=== PATIENT | female | born 1965 | race Caucasian/White ===

== ENCOUNTER → 2018-04-23 | Outpatient (CLI) | payer BC ==
--- NOTE | 2018-04-23 12:52 | MM ---
Reason for exam: screening (asymptomatic). Last mammogram was performed 2 years and 5 months ago. History: Patient history of other cancer. Family history of breast cancer in aunt. Benign US biopsy breast VAD RT of the right breast, May 12, 2015. US discontinued breast loc RT of the right breast, May 03, 2015. Benign stereotactic core biopsy of the right breast, June 29, 2004. Benign ultrasound-guided cyst aspiration of the right breast, May 25, 2003. Benign ultrasound-guided cyst aspiration of the right breast, May 25, 2003. 2 cyst aspirations of the right breast. Core biopsy of the right breast. Physical Findings: A clinical breast exam by your physician is recommended on an annual basis and results should be correlated with mammographic findings. MG Screening Mammo w CAD Bilateral CC and MLO view(s) were taken. Prior study comparison: November 15, 2015, right breast MG diagnostic mammo RT w CAD. May 12, 2015, right breast MG diagnostic mammo RT wo CAD. The breast tissue is heterogeneously dense. This may lower the sensitivity of mammography. Previous mammotome biopsy in the right breast x 2. No significant changes when compared with prior studies. ASSESSMENT: Negative, BI-RAD 1 RECOMMENDATION: Routine screening mammogram of both breasts in 1 year.
== END | disposition home or self-care (01) ==
LOC: RADMAMWWP 07:07
PROVIDERS: ATTEND Family Medicine
DX: Z12.31 Encounter for screening mammogram for malignant neoplasm of breast (principal)
CPT/HCPCS: 77067

== ENCOUNTER 2018-08-07 13:30 | Observation (INO) | payer BC ==
[2018-08-07] MEDS ORDERED: ACETAMINOPHEN TAB 500 MG TAB PO STA (13:53)
[2018-08-07] MEDS ORDERED: methylPREDNISolone SOD SUCCI 125 MG/2 ML VIAL IV STA (13:53)
[2018-08-07] MEDS ORDERED: ALBUTEROL NEBULIZED 2.5 MG/3 ML INHALATION STA (13:53)
[2018-08-07] MEDS ORDERED: IPRATROPIUM-ALBUTEROL 3 ML NEB INHALATION STA (13:53)
[2018-08-07] MEDS ORDERED: IBUPROFEN 600 MG TAB PO STA (13:53)
[2018-08-07] MEDS ORDERED: SODIUM CHLORIDE 0.9% 1,000 ML IV ONE (13:54)
--- NOTE | 2018-08-07 14:04 | ED ---
URI HPI - General Chief Complaint: Upper Respiratory Infection Stated Complaint: cough, congestion, body aches Time Seen by Provider: 08/07/18 13:45 Source: patient, RN notes reviewed, old records reviewed Mode of arrival: ambulatory Limitations: no limitations - History of Present Illness Initial Comments: Patient is a 33-year-old female since returned today with cough congestion, body aches. She states that she has been having cough for the past week. Today she turned home from work early playing of severe body aches and fevers chills. Patient states that she's had a productive cough. She is a smoker. She denies any history of sick contacts in and close percent today. She does work at [employer]. - Related Data Home Medications Medication Instructions Recorded Confirmed Levothyroxine Sodium [Synthroid] 50 mcg PO DAILY 05/01/15 08/07/18 Allergies Allergy/AdvReac Type Severity Reaction Status Date / Time codeine AdvReac SHORTNESS Verified 08/07/18 13:47 OF BREATHE Review of Systems ROS Statement: Those systems with pertinent positive or pertinent negative responses have been documented in the HPI. ROS Other: All systems not noted in ROS Statement are negative. Past Medical History Past Medical History: Cancer, Pneumonia, Thyroid Disorder History of Any Multi-Drug Resistant Organisms: None Reported Additional Past Surgical History / Comment(s): neck sx Past Psychological History: No Psychological Hx Reported Smoking Status: Current every day smoker Past Alcohol Use History: Rare Past Drug Use History: None Reported General Exam - General Exam Comments Initial Comments: 53-year-old female. Limitations: no limitations General appearance: alert, in no apparent distress Head exam: Present: atraumatic, normocephalic, normal inspection Eye exam: Present: normal appearance, PERRL, EOMI. Absent: scleral icterus, conjunctival injection, periorbital swelling ENT exam: Present: normal exam, mucous membranes moist Neck exam: Present: normal inspection. Absent: tenderness, meningismus, lymphadenopathy Respiratory exam: Present: wheezes, decreased breath sounds. Absent: normal lung sounds bilaterally, respiratory distress, rales, rhonchi, stridor Cardiovascular Exam: Present: regular rate, normal rhythm, normal heart sounds. Absent: systolic murmur, diastolic murmur, rubs, gallop, clicks GI/Abdominal exam: Present: soft, normal bowel sounds. Absent: distended, tenderness, guarding, rebound, rigid Extremities exam: Present: normal inspection, full ROM, normal capillary refill. Absent: tenderness, pedal edema, joint swelling, calf tenderness Back exam: Present: normal inspection Neurological exam: Present: alert, oriented X3, CN II-XII intact Psychiatric exam: Present: normal affect, normal mood Skin exam: Present: warm, dry, intact, normal color. Absent: rash Course Vital Signs 08/07/18 08/07/18 08/07/18 13:34 14:49 14:59 Temperature 102.5 F H Pulse Rate 137 H 124 H 119 H Respiratory 18 Rate Blood Pressure 134/77 O2 Sat by Pulse 94 L Oximetry 08/07/18 08/07/18 08/07/18 15:01 15:30 15:43 Temperature 102.3 F H 100.8 F H Pulse Rate 102 H 100 Respiratory 20 20 Rate Blood Pressure 112/72 112/72 O2 Sat by Pulse 96 93 L Oximetry Medical Decision Making - Medical Decision Making Patient is a 53-year-old female since the ED today for complaints of cough, fevers chills. Patient has a significantly productive cough. She is generally healthy. Patient was given a breathing treatment, started on IV fluids labwork obtained. Patient's blood work shows evidence of leukocytosis with blood cell count elevated 15,000. Patient's chest x-ray shows a possibility of early left lower lobe pneumonia. This fits patient's clinical symptoms. Patient was started on Rocephin and azithromycin given IV site and Medrol. She is given Motrin Tylenol she did have a very high fever upon arrival 102. I discussed the Patient was offered admission or to be discharged home. Patient states that she still continues to feel unwell in with worsening coughing feels safer to stay. Patient was admitted at this time for observation with breathing treatments. Discussed case with Dr. Yudith Richardson whom discussed the case with Dr. Gifford. - Lab Data Result diagrams: 08/07/18 14:16 08/07/18 14:16 Lab Results 08/07/18 08/07/18 08/07/18 Range/Units 14:16 14:16 14:16 WBC (3.8-10.6) k/uL RBC (3.80-5.40) m/uL Hgb (11.4-16.0) gm/dL Hct (34.0-46.0) % MCV (80.0-100.0) fL MCH (25.0-35.0) pg MCHC (31.0-37.0) g/dL RDW (11.5-15.5) % Plt Count (150-450) k/uL Neutrophils % % Lymphocytes % % Monocytes % % Eosinophils % % Basophils % % Neutrophils # (1.3-7.7) k/uL Lymphocytes # (1.0-4.8) k/uL Monocytes # (0-1.0) k/uL Eosinophils # (0-0.7) k/uL Basophils # (0-0.2) k/uL Sodium 135 L (137-145) mmol/L Potassium 4.4 (3.5-5.1) mmol/L Chloride 103 (98-107) mmol/L Carbon Dioxide 24 (22-30) mmol/L Anion Gap 8 mmol/L BUN 10 (7-17) mg/dL Creatinine 0.79 (0.52-1.04) mg/dL Est GFR (CKD-EPI)AfAm >90 (>60 ml/min/1.73 sqM) Est GFR (CKD-EPI)NonAf 85 (>60 ml/min/1.73 sqM) Glucose 109 H (74-99) mg/dL Plasma Lactic Acid Gabe (0.7-2.0) mmol/L Calcium 9.4 (8.4-10.2) mg/dL Urine Color Yellow Urine Appearance Cloudy H (Clear) Urine pH 6.5 (5.0-8.0) Ur Specific [place] 1.020 (1.001-1.035) Urine Protein Negative (Negative) Urine Glucose (UA) Negative (Negative) Urine Ketones Negative (Negative) Urine Blood Negative (Negative) Urine Nitrite Negative (Negative) Urine Bilirubin Negative (Negative) Urine Urobilinogen <2.0 (<2.0) mg/dL Ur Leukocyte Esterase Moderate H (Negative) Urine RBC 1 (0-5) /hpf Urine WBC <1 (0-5) /hpf Ur Squamous Epith Cells 13 H (0-4) /hpf Urine Bacteria Rare H (None) /hpf Urine Mucus Rare H (None) /hpf Influenza Type A RNA Not Detected (Not Detectd) Influenza Type B (PCR) Not Detected (Not Detectd) Group A Strep Rapid (Negative) 08/07/18 08/07/18 08/07/18 Range/Units 14:16 14:16 14:16 WBC 15.5 H (3.8-10.6) k/uL RBC 4.47 (3.80-5.40) m/uL Hgb 12.9 (11.4-16.0) gm/dL Hct 39.4 (34.0-46.0) % MCV 88.1 (80.0-100.0) fL MCH 28.9 (25.0-35.0) pg MCHC 32.8 (31.0-37.0) g/dL RDW 13.2 (11.5-15.5) % Plt Count 324 (150-450) k/uL Neutrophils % 82 % Lymphocytes % 10 % Monocytes % 5 % Eosinophils % 1 % Basophils % 0 % Neutrophils # 12.7 H (1.3-7.7) k/uL Lymphocytes # 1.6 (1.0-4.8) k/uL Monocytes # 0.8 (0-1.0) k/uL Eosinophils # 0.2 (0-0.7) k/uL Basophils # 0.1 (0-0.2) k/uL Sodium (137-145) mmol/L Potassium (3.5-5.1) mmol/L Chloride (98-107) mmol/L Carbon Dioxide (22-30) mmol/L Anion Gap mmol/L BUN (7-17) mg/dL Creatinine (0.52-1.04) mg/dL Est GFR (CKD-EPI)AfAm (>60 ml/min/1.73 sqM) Est GFR (CKD-EPI)NonAf (>60 ml/min/1.73 sqM) Glucose (74-99) mg/dL Plasma Lactic Acid Gabe 0.9 (0.7-2.0) mmol/L Calcium (8.4-10.2) mg/dL Urine Color Urine Appearance (Clear) Urine pH (5.0-8.0) Ur Specific [place] (1.001-1.035) Urine Protein (Negative) Urine Glucose (UA) (Negative) Urine Ketones (Negative) Urine Blood (Negative) Urine Nitrite (Negative) Urine Bilirubin (Negative) Urine Urobilinogen (<2.0) mg/dL Ur Leukocyte Esterase (Negative) Urine RBC (0-5) /hpf Urine WBC (0-5) /hpf Ur Squamous Epith Cells (0-4) /hpf Urine Bacteria (None) /hpf Urine Mucus (None) /hpf Influenza Type A RNA (Not Detectd) Influenza Type B (PCR) (Not Detectd) Group A Strep Rapid Negative (Negative) - Radiology Data Radiology results: report reviewed Minimal linear opacity in left costophrenic angle likely related to early developing pneumonia Disposition Clinical Impression: Pneumonia, Sepsis Disposition: ADMITTED IP TO THIS HOSP Condition: Stable Is patient prescribed a controlled substance at d/c from ED?: No Referrals: Bruce Arce Jr, [Primary Care Provider] - 1-2 days Time of Disposition: 15:49
[2018-08-07] MEDS: SODIUM CHLORIDE 0.9% 1,000 ML IV SCH (14:15)
[2018-08-07 14:34] LABS: Basophils # (A) 0.1 k/uL (0-0.2); Basophils % (A) 0 %; Eosinophils # (A) 0.2 k/uL (0-0.7); Eosinophils % (A) 1 %; HCT 39.4 % (34.0-46.0); HGB 12.9 gm/dL (11.4-16.0); Lymphocytes # (A) 1.6 k/uL (1.0-4.8); Lymphocytes % (A) 10 %; MCH 28.9 pg (25.0-35.0); MCHC 32.8 g/dL (31.0-37.0); MCV 88.1 fL (80.0-100.0); Mean Platelet Volume 7.2; Monocytes # (A) 0.8 k/uL (0-1.0); Monocytes % (A) 5 %; Neutrophils # (A) 12.7 k/uL (1.3-7.7); Neutrophils % (A) 82 %; Platelet Count 324 k/uL (150-450); RBC 4.47 m/uL (3.80-5.40); RDW 13.2 % (11.5-15.5); WBC 15.5 k/uL (3.8-10.6)
[2018-08-07 14:36] LABS: Appearance,Urine Cloudy (Clear); Bacteria,Urine Rare /hpf; Bilirubin,Urine Negative (Negative); Blood,Urine Negative (Negative); Color,Urine Yellow; Glucose,Urine (UA) Negative (Negative); Ketones,Urine Negative (Negative); Leukocyte Esterase,Urine Moderate (Negative); Mucus,Urine Rare /hpf; Nitrite,Urine Negative (Negative); PH, Urine 6.5 (5.0-8.0); Protein,Urine Negative (Negative); RBC,Urine 1 /hpf (0-5); Squamous Epithelial Cell,Urine 13 /hpf (0-4); Urobilinogen,Urine <2.0 mg/dL (<2.0); WBC,Urine <1 /hpf (0-5)
--- NOTE | 2018-08-07 14:47 | XR ---
EXAMINATION TYPE: XR chest 2V DATE OF EXAM: 08/07/2018 COMPARISON: 05/01/2015 HISTORY: Cough, congestion, and fever TECHNIQUE: Frontal and lateral views of the chest are obtained. FINDINGS: Minimal linear opacity is seen at the left costophrenic angle. Remainder the lungs are jony ar. Mild multilevel degenerative changes of the spine are seen. Cardia mediastinal silhouette is with in normal limits. Cervical fusion device is noted. IMPRESSION: Minimal linear opacity at the left costophrenic angle likely related although early deve loping pneumonia is possible.
[2018-08-07] MEDS ORDERED: AZITHROMYCIN 500 MG TAB PO STA (14:50)
[2018-08-07] MEDS ORDERED: cefTRIAXone IN SWFI 1,000 MG/10 ML SYRINGE IVP STA (14:50)
[2018-08-07 14:59] LABS: African American GFR (CKD) >90 (>60 ml/min/1.73 sqM); Anion Gap 8 mmol/L; Blood Urea Nitrogen 10 mg/dL (7-17); Calcium 9.4 mg/dL (8.4-10.2); Carbon Dioxide 24 mmol/L (22-30); Chloride 103 mmol/L (98-107); Glucose 109 mg/dL (74-99); Potassium 4.4 mmol/L (3.5-5.1); Sodium 135 mmol/L (137-145)
[2018-08-07] MEDS ORDERED: PNEUMONIA PROTOCOL UTILIZED 1 EACH MISC PO PRN (15:50)
[2018-08-07] MEDS ORDERED: IPRATROPIUM-ALBUTEROL 3 ML NEB INHALATION PRN (15:50)
[2018-08-07] MEDS ORDERED: ALBUTEROL NEBULIZED 2.5 MG/3 ML INHALATION PRN (15:50)
[2018-08-07] MEDS ORDERED: NALOXONE 0.4 MG/ML 1 ML VIAL IV PRN (15:51)
[2018-08-07] MEDS ORDERED: ACETAMINOPHEN TAB 325 MG TAB PO PRN (15:51)
[2018-08-07] MEDS ORDERED: ONDANSETRON 4 MG/2 ML VIAL IVP PRN (15:51)
[2018-08-07] MEDS ORDERED: KETOROLAC 30 MG/ML 1 ML VIAL IVP PRN (15:51)
[2018-08-07] MEDS ORDERED: IBUPROFEN 400 MG TAB PO PRN (15:51)
[2018-08-07 19:49] VITALS: RESP 16
[2018-08-08] MEDS: SODIUM CHLORIDE 0.9% 1,000 ML IV SCH ×4 (02:24→11:15)
[2018-08-08] MEDS ORDERED: LEVOTHYROXINE 50 MCG TAB PO SCH (06:30)
--- NOTE | 2018-08-08 07:33 | XR ---
EXAMINATION TYPE: XR chest 2V DATE OF EXAM: 08/08/2018 COMPARISON: 08/07/2018 HISTORY: Follow-up for pneumonia. TECHNIQUE: Frontal and lateral views of the chest are obtained. FINDINGS: There is clearing of the previously seen consolidation at the left costophrenic angle. How ever a somewhat spiculated density remains on the lateral view posteriorly. Remainder the lungs are c lear. Minimal degenerative changes of the spine are seen with partial visualization of a cervical fus ion device. Cardiomediastinal silhouette is within normal limits. No pneumothorax. IMPRESSION: Resolved left basilar airspace disease on the frontal view however a spiculated density persists on the lateral view only. Continued follow-up to resolution with 2 view chest x-ray is recom mended to exclude underlying pulmonary nodule.
[2018-08-08 08:30] VITALS: BP 125/83; PULSE 106; TEMP 97.8
[2018-08-08] MEDS ORDERED: RX INFO: IV CONTRAST WAS GIVEN 1 EACH MISC MISCELLANE PRN (08:59)
[2018-08-08] MEDS ORDERED: PANTOPRAZOLE 40 MG/10 ML VIAL IV SCH (09:00)
[2018-08-08] MEDS ORDERED: methylPREDNISolone SOD SUCCI 125 MG/2 ML VIAL IV SCH (12:00)
[2018-08-08] MEDS ORDERED: SYMBICORT 160-4.5 MCG INHALER INHALATION SCH (12:00)
[2018-08-08] MEDS ORDERED: NICOTINE 21MG/24HR PATCH TRANSDERM SCH (12:00)
[2018-08-08] MEDS ORDERED: IPRATROPIUM-ALBUTEROL 3 ML NEB INHALATION SCH (12:00)
[2018-08-08] MEDS ORDERED: INSULIN ASPART (NovoLOG) 100 UNIT/ML VIAL SQ SCH (12:30)
--- NOTE | 2018-08-08 12:49 | CT ---
EXAMINATION TYPE: CT chest w con DATE OF EXAM: 08/08/2018 COMPARISON: None HISTORY: Abnormal CXR. Productive cough. CT DLP: 354.5 mGycm, Automated exposure control for dose reduction was used. CONTRAST: Performed injected with 100 mL of Isovue 300. TECHNIQUE: Axial images were obtained at 5 mm thick sections. Reconstructed images are reviewed on [employer] computer in the coronal plane. FINDINGS: Portion of the thyroid visualized is normal. There is a 0.6 cm nodule within the lingula. Series 204 image 36. Some streak opacity in the posterior left lung base may correspond to the location on chest x-ray. Ho wever, the findings do not appear to be correlating. Chest x-ray finding appears larger than the CT f inding. Continued monitoring with chest x-ray is recommended. No enlarged mediastinal or hilar adenopathy is evident. The ascending aorta diameter at the level o f the main pulmonary artery is 3.3 cm. The main pulmonary artery diameter at the bifurcation is 3.3 cm. Minimal coronary artery calcifications present. Limited CT sections are obtained through the upper abdomen. Scattered hypodensities within the liver compatible with hepatic cysts. IMPRESSIONS: 1. Some streak atelectasis in the posterior left base may correspond to the region on the chest x-ray . Finding on CT may have had partial resolution and could be atelectasis. 2. There is a small nodule within the lingula. Follow-up is recommended.
--- NOTE | 2018-08-08 14:16 | P.HPIM ---
History of Present Illness H&P Date: 08/08/18 Chief Complaint: Cough, body aches, fever This is a 53-year-old female with history of cervical cancer, hypothyroidism, ongoing nicotine dependence to presented the ER with complaints of of productive cough 1 week accompanied by body aches, fevers and chills. On arrival, Temperature 102.5, tachycardic, heart rate 137, systolic BPs 96-107, O2 sat on room air 94% WBC 15, chest x-ray reporting minimal linear opacity at the left costophrenic angle, possibly early pneumonia. Repeat x-ray reported resolved bibasilar airspace disease, spiculated densities persist on the lateral view only. Chest CT reporting some streaky atelectasis in the posterior left base, may have partial resolution, possible atelectasis, small nodule in the lingula, 0.6 cm. Negative for influenza A/B. Negative for strep. Blood and sputum sputum cultures obtained .Received IV fluid hydration, Zithromax, Rocephin, IV steroids, Motrin and Tylenol. Review of Systems ROS Statement: Those systems with pertinent positive or pertinent negative responses have been documented in the HPI. ROS Other: All systems not noted in ROS Statement are negative. Past Medical History Past Medical History: Cancer, Pneumonia, Thyroid Disorder Additional Past Medical History / Comment(s): CERVICAL CANCER AT 23YRS OLD. PNEUMONIA. History of Any Multi-Drug Resistant Organisms: None Reported Past Surgical History: Orthopedic Surgery Additional Past Surgical History / Comment(s): CERVICAL SPINAL SURGERY Past Anesthesia/Blood Transfusion Reactions: No Reported Reaction Past Psychological History: No Psychological Hx Reported Smoking Status: Current every day smoker Past Alcohol Use History: Rare Past Drug Use History: None Reported - Past Family History Mother Family Medical History: Diabetes Mellitus Father Family Medical History: Diabetes Mellitus, Hypertension Brother(s) Family Medical History: Diabetes Mellitus Sister(s) Family Medical History: Cancer, Diabetes Mellitus Medications and Allergies Home Medications Medication Instructions Recorded Confirmed Type Levothyroxine Sodium [Synthroid] 50 mcg PO DAILY 05/01/15 08/07/18 History Acetaminophen Tab [Tylenol] 650 mg PO Q6HR PRN tab 08/08/18 Rx Albuterol Sulfate [Proair Hfa] 2 puff INHALATION Q6HR PRN #1 08/08/18 Rx inhaler Azithromycin [Zithromax] 500 mg PO Q24H #5 tab 08/08/18 Rx Cefuroxime Axetil [Ceftin] 500 mg PO BID 3 Days #6 tab 08/08/18 Rx Fluticasone/Umeclidin/Vilanter 1 inhalation INHALATION DAILY #1 08/08/18 Rx [Trelegy Ellipta 100-62.5-25] device Nicotine 21Mg/24Hr Patch [Habitrol] 1 patch TRANSDERM DAILY #30 patch 08/08/18 Rx Omeprazole [PriLOSEC] 20 mg PO AC-BID #28 cap 08/08/18 Rx predniSONE 10 mg PO DIRECTED #30 tab 08/08/18 Rx Allergies Allergy/AdvReac Type Severity Reaction Status Date / Time codeine AdvReac SHORTNESS Verified 08/07/18 13:47 OF BREATHE Physical Exam Vitals: Vital Signs Temp Pulse Pulse Resp BP BP Pulse Ox 08/08/18 08:27 110 H 08/08/18 08:13 111 H 98 08/08/18 07:35 97.8 F 106 H 16 125/83 96 08/08/18 01:07 97.9 F 77 16 96/64 95 08/07/18 19:48 98.1 F 98 16 107/74 96 08/07/18 17:00 87 20 115/74 94 L 08/07/18 16:30 115/73 95 08/07/18 16:00 116/72 93 L 08/07/18 15:43 100.8 F H 08/07/18 15:30 100 20 112/72 93 L 08/07/18 15:01 102.3 F H 102 H 20 112/72 96 08/07/18 14:59 119 H 08/07/18 14:49 124 H 08/07/18 13:34 102.5 F H 137 H 18 134/77 94 L Intake and Output 08/07/18 08/08/18 08/08/18 22:59 06:59 14:59 Intake Total 200 1480 240 Balance 200 1480 240 Intake: Intake, IV Titration 200 1000 Amount Sodium Chloride 0.9% 1, 200 1000 000 ml @ 100 mls/hr IV . Q10H [facility] Rx#:[id number] Oral 480 240 PHYSICAL EXAM: VITAL SIGNS: As above GENERAL: Sitting up in bed, no acute distress HEENT: Conjunctivae normal. eyes normal. NECK: No JVD. No thyroid enlargement. No LNs CARDIOVASCULAR: S1, S2 regular.. No murmur RESPIRATION: Breath sounds diminished in the bases. No rhonchi or crackles. Fine rate basilar Expiratory wheezing.No bronchial breathing. ABDOMEN: Soft, nontender . No guarding. no masses palpable. Bowel sounds heard. LEGS: No edema. no swelling PSYCHIATRY: Alert and oriented ?-3, mood and affect normal. NERVOUS SYSTEM: Cranial N 2-12 grossly normal. Moves all 4 limbs. Diffuse weakness No focal deficits. Strength and sensation grossly intact.. Skin: no lesions, no rash Joints: No active swelling. No inflammation. Lymphatic system. No LN neck axilla or groin. Results CBC & Chem 7: 08/07/18 14:16 08/07/18 14:16 Labs: Abnormal Lab Results - Last 24 Hours (Table) 08/07/18 08/07/18 08/07/18 Range/Units 14:16 14:16 14:16 WBC 15.5 H (3.8-10.6) k/uL Neutrophils # 12.7 H (1.3-7.7) k/uL Sodium 135 L (137-145) mmol/L Glucose 109 H (74-99) mg/dL Urine Appearance Cloudy H (Clear) Ur Leukocyte Esterase Moderate H (Negative) Ur Squamous Epith Cells 13 H (0-4) /hpf Urine Bacteria Rare H (None) /hpf Urine Mucus Rare H (None) /hpf Microbiology - Last 24 Hours (Table) 08/07/18 14:16 Group A Strep Throat Culture - Preliminary Throat Thrombosis Risk Factor Assmnt - Choose All That Apply Any of the Below Risk Factors Present?: Yes Each Factor Represents 1 point: Age 41-60 years, Serious lung disease incl. pneumonia (< 1month) Thrombosis Risk Factor Assessment Total Risk Factor Score: 2 Thrombosis Risk Factor Assessment Level: Low Risk Assessment and Plan Assessment: -Acute early pneumonia possibly.Streaky atelectasis in the posterior left base, may have partial resolution, possible atelectasis, small nodule in the lingula, 0.[address] -Nicotine dependence -Hypothyroidism -History of cervical cancer Plan: Continue on current medication regime ,monitoring and symptomatic treatment. Significant clinical improvement on IV fluids, IV antibiotics, IV steroids. Home meds have been reviewed and resumed. Patient ambulating in hallway 3, eager for discharge. Patient is being discharged home in a stable condition with guarded prognosis. Patient to follow-up with pulmonary outpatient regarding chest CT. Time taken: 35 minutes
--- NOTE | 2018-08-08 14:22 | P.DS ---
Providers Date of admission: 08/07/18 16:57 Expected date of discharge: 08/08/18 Attending physician: Bruce Benson Primary care physician: Bruce Arce [facility] Course: Final Diagnoses: -Acute early pneumonia possibly.Streaky atelectasis in the posterior left base, may have partial resolution, possible atelectasis, small nodule in the lingula, 0.[address] -Nicotine dependence -Hypothyroidism -History of cervical cancer Hospital course:This is a 53-year-old female with history of cervical cancer, hypothyroidism, ongoing nicotine dependence to presented the ER with complaints of of productive cough 1 week accompanied by body aches, fevers and chills. On arrival, Temperature 102.5, tachycardic, heart rate 137, systolic BPs 96-107, O2 sat on room air 94% WBC 15, chest x-ray reporting minimal linear opacity at the left costophrenic angle, possibly early pneumonia. Repeat x-ray reported resolved bibasilar airspace disease, spiculated densities persist on the lateral view only. Chest CT reporting some streaky atelectasis in the posterior left base, may have partial resolution, possible atelectasis, small nodule in the lingula, 0.6 cm. Negative for influenza A/B. Negative for strep. Blood and spu carlton sputum cultures obtained .Received IV fluid hydration, Zithromax, Rocephin, IV steroids, Motrin and Tylenol. Significant clinical improvement on IV fluids, IV antibiotics, IV steroids. Patient ambulating in hallway 3, eager for discharge. No nausea vomiting or diarrhea. Denies abdominal pain. Denies lightheadedness dizziness or focal deficits. Denies chest pain, palpitations. Patient is being discharged home in a stable condition with guarded prognosis. Patient to follow-up with pulmonary outpatient regarding chest CT. EXAM: GENERAL: Alert and oriented 3, no acute distress CARDIOVASCULAR: S1, S2 regular.. No murmur RESPIRATION: Breath nonlabored, sounds diminished in the bases.Fine rate basilar Expiratory wheezing. ABDOMEN: Soft, nontender . No guarding. no masses palpable. Bowel sounds heard. LEGS: No edema. no swelling NERVOUS SYSTEM: No focal deficits. The impression and plan of care has been dictated as directed. : I performed a history and examination of this patient, discussed the same with the dictator. I agree with the dictator's note ,documented as a scribe. Any additional findings or plans will be noted. Time taken: 35 minutes Patient Condition at Discharge: Stable Plan - Discharge Summary Discharge Rx Participant: No New Discharge Prescriptions: New Cefuroxime Axetil [Ceftin] 500 mg PO BID 3 Days #6 tab Acetaminophen Tab [Tylenol] 650 mg PO Q6HR PRN tab PRN Reason: Mild Pain Or Fever > 100.5 Azithromycin [Zithromax] 500 mg PO Q24H #5 tab Fluticasone/Umeclidin/Vilanter [Trelegy Ellipta 100-62.5-25] 1 inhalation INHALATION DAILY #1 device Albuterol Sulfate [Proair Hfa] 2 puff INHALATION Q6HR PRN #1 inhaler PRN Reason: Shortness Of Breath predniSONE 10 mg PO DIRECTED #30 tab Omeprazole [PriLOSEC] 20 mg PO AC-BID #28 cap Nicotine 21Mg/24Hr Patch [Habitrol] 1 patch TRANSDERM DAILY #30 patch Continue Levothyroxine Sodium [Synthroid] 50 mcg PO DAILY Discharge Medication List Levothyroxine Sodium [Synthroid] 50 mcg PO DAILY 05/01/15 [History] Acetaminophen Tab [Tylenol] 650 mg PO Q6HR PRN tab 08/08/18 [Rx] Albuterol Sulfate [Proair Hfa] 2 puff INHALATION Q6HR PRN #1 inhaler 08/08/18 [Rx] Azithromycin [Zithromax] 500 mg PO Q24H #5 tab 08/08/18 [Rx] Cefuroxime Axetil [Ceftin] 500 mg PO BID 3 Days #6 tab 08/08/18 [Rx] Fluticasone/Umeclidin/Vilanter [Trelegy Ellipta 100-62.5-25] 1 inhalation INHALATION DAILY #1 device 08/08/18 [Rx] Nicotine 21Mg/24Hr Patch [Habitrol] 1 patch TRANSDERM DAILY #30 patch 08/08/18 [Rx] Omeprazole [PriLOSEC] 20 mg PO AC-BID #28 cap 08/08/18 [Rx] predniSONE 10 mg PO DIRECTED #30 tab 08/08/18 [Rx] Follow up Appointment(s)/Referral(s): Bruce Arce Jr, [Primary Care Provider] - 08/12/18 11:00 am (With Merry schwarz) Heather Martínez MD [STAFF PHYSICIAN] - 08/14/18 3:30 pm (CT reporting lingula nodule 0.6cm, possible streaky atelectasis left base WithNP) Ambulatory/Diagnostic Orders: Complete Blood Count w/diff [LAB.AMB] Time Frame: 3 Days, Location: None Selected Patient Instructions/Handouts: Pneumonia (DC) Activity/Diet/Wound Care/Special Instructions: Pending CT results Fax final blood and sputum culture results to Dr. Arce No smoking
[2018-08-08] MEDS ORDERED: AZITHROMYCIN 500 MG TAB PO SCH (16:00)
[2018-08-09] MEDS ORDERED: PANTOPRAZOLE 40 MG TABLET PO SCH (09:00)
== END 2018-08-08 14:10 | disposition home or self-care (01) ==
LOC: EC 13:30 → 4SSUR 16:57
PROVIDERS: ADMIT Family Medicine; ATTEND Family Medicine
DX: R05 Cough (principal); R50.9 Fever, unspecified; R91.1 Solitary pulmonary nodule; E03.9 Hypothyroidism, unspecified; F17.200 Nicotine dependence, unspecified, uncomplicated; Z79.890 Hormone replacement therapy; Z85.41 Personal history of malignant neoplasm of cervix uteri; Z87.01 Personal history of pneumonia (recurrent); Z88.5 Allergy status to narcotic agent; Z71.6 Tobacco abuse counseling; Z79.2 Long term (current) use of antibiotics; Z79.51 Long term (current) use of inhaled steroids; Z79.52 Long term (current) use of systemic steroids; Z79.899 Other long term (current) drug therapy; Z82.49 Family history of ischemic heart disease and other diseases of the circulatory system; Z83.3 Family history of diabetes mellitus
CPT/HCPCS: 96375 ×2; 96361; 96374; 99285; 36415; 94640 ×2; 94760; 80048; 83605; 85025; 81001; 87040; 87081; 87430; 87502; 71046 ×2; 71260; G0378 ×2; J2930; J0696; C9113; Q9967

== ENCOUNTER 2019-11-20 23:31 | Emergency (ER) | payer BC ==
[2019-11-20] MEDS ORDERED: IBUPROFEN 600 MG TAB PO STA (23:50)
[2019-11-20] MEDS ORDERED: ACETAMINOPHEN TAB 500 MG TAB PO STA (23:50)
--- NOTE | 2019-11-21 00:27 | XR ---
EXAMINATION TYPE: XR chest 1V DATE OF EXAM: 11/21/2019 COMPARISON: 08/14/2018 HISTORY: Pneumonia. Chest pain TECHNIQUE: Single view FINDINGS: Heart and mediastinum are normal. Lungs are clear. Diaphragm is normal. Bony thorax is norm al. IMPRESSION: Normal chest. No adverse change compared to old exam. There is clearing of the subsegment al atelectasis left lung base compared to old exam.
[2019-11-21] MEDS ORDERED: AMOXICILLIN 500MG STARTER PACK 3 CAP BTL PO STA (00:54)
[2019-11-21] MEDS ORDERED: DEXAMETHASONE SOD PHOSPHATE 10 MG/ML 1 ML VIAL IM STA (00:55)
--- NOTE | 2019-11-21 00:55 | ED ---
ENT HPI - General Chief complaint: ENT Stated complaint: sore throat, body aches Time Seen by Provider: 11/20/19 23:40 Source: patient Mode of arrival: ambulatory Limitations: no limitations - History of Present Illness Initial comments: 54 year-old female patient presents to the emergency department today for evaluation of sore throat and generalized body aches. Patient states starting this morning she developed a sore throat, equal on both sides. She states that she is also had a cough with clear sputum production since this afternoon. She denies any shortness of breath with this. She denies a rash, nausea, vomiting, or abdominal pain. Denies any known fever. Denies taking any medication for her symptoms. She denies any sick contacts or recent travel. Patient denies any recent chest pain, abdominal pain, back pain, numbness, tingling, dizziness, weakness, hematuria, dysuria, urinary urgency, urinary frequency, headache, visual changes, or any other complaints. - Related Data Home Medications Medication Instructions Recorded Confirmed Levothyroxine Sodium [Synthroid] 50 mcg PO DAILY 05/01/15 08/07/18 Previous Rx's Medication Instructions Recorded Acetaminophen Tab [Tylenol] 650 mg PO Q6HR PRN tab 08/08/18 Albuterol Sulfate [Proair Hfa] 2 puff INHALATION Q6HR PRN #1 08/08/18 inhaler Azithromycin [Zithromax] 500 mg PO Q24H #5 tab 08/08/18 Cefuroxime Axetil [Ceftin] 500 mg PO BID 3 Days #6 tab 08/08/18 Fluticasone/Umeclidin/Vilanter 1 inhalation INHALATION DAILY #1 08/08/18 [Trelenelly Ellipta 100-62.5-25] device Nicotine 21Mg/24Hr Patch [Habitrol] 1 patch TRANSDERM DAILY #30 patch 08/08/18 Omeprazole [PriLOSEC] 20 mg PO AC-BID #28 cap 08/08/18 predniSONE 10 mg PO DIRECTED #30 tab 08/08/18 Amoxicillin 500 mg PO Q12HR #20 cap 11/21/19 Allergies Allergy/AdvReac Type Severity Reaction Status Date / Time codeine AdvReac SHORTNESS Verified 11/20/19 23:39 OF BREATHE Review of Systems ROS Statement: Those systems with pertinent positive or pertinent negative responses have been documented in the HPI. ROS Other: All systems not noted in ROS Statement are negative. Past Medical History Past Medical History: Cancer, Pneumonia, Thyroid Disorder Additional Past Medical History / Comment(s): CERVICAL CANCER AT 23YRS OLD. PNEUMONIA. History of Any Multi-Drug Resistant Organisms: None Reported Past Surgical History: Orthopedic Surgery Additional Past Surgical History / Comment(s): CERVICAL SPINAL SURGERY Past Anesthesia/Blood Transfusion Reactions: No Reported Reaction Past Psychological History: No Psychological Hx Reported Smoking Status: Current every day smoker Past Alcohol Use History: Rare Past Drug Use History: None Reported - Past Family History Mother Family Medical History: Diabetes Mellitus Father Family Medical History: Diabetes Mellitus, Hypertension Brother(s) Family Medical History: Diabetes Mellitus Sister(s) Family Medical History: Cancer, Diabetes Mellitus General Exam Limitations: no limitations General appearance: alert, in no apparent distress, other (This is a well developed, well nourished, adult female patient in no acute distress. ) Eye exam: Present: normal appearance, PERRL, EOMI. Absent: scleral icterus, conjunctival injection, periorbital swelling ENT exam: Present: mucous membranes moist, TM's normal bilaterally. Absent: normal oropharynx (Pharyngeal erythema. There is some tonsillar hypertrophy. No tonsillar exudate. Tonsils are symmetric, uvula is midline.) Neck exam: Present: normal inspection, lymphadenopathy (There is lymphadenopathy to the anterior cervical region). Absent: tenderness, meningismus Respiratory exam: Present: normal lung sounds bilaterally. Absent: respiratory distress, wheezes, rales, rhonchi, stridor Cardiovascular Exam: Present: regular rate, normal rhythm, normal heart sounds. Absent: systolic murmur, diastolic murmur, rubs, gallop, clicks Neurological exam: Present: alert, oriented X3, CN II-XII intact Psychiatric exam: Present: normal affect, normal mood Skin exam: Present: warm, dry, intact, normal color. Absent: rash Course Vital Signs 11/20/19 11/21/19 23:33 01:20 Temperature 98.9 F 98.7 F Pulse Rate 102 H 78 Respiratory 18 20 Rate Blood Pressure 105/65 107/63 O2 Sat by Pulse 95 97 Oximetry Medical Decision Making - Medical Decision Making 54-year-old female patient presents to the emergency department today for evaluation of sore throat, generalized body aches. Physical examination did reveal pharyngeal erythema and tonsillar hypertrophy. There is no exudate. Uvula is midline, tonsils are symmetric. She did have anterior cervical lymphadenopathy. Influenza test was negative. COVID-19 test is pending. Strep screen was positive. Patient was started on amoxicillin. She is instructed take Tylenol Motrin for pain and fever control. She is instructed to follow-up with her primary care physician for recheck in 1-2 days. Return parameters discussed in detail. She verbalizes understanding and agrees with this plan. - Lab Data Lab Results 11/21/19 Range/Units 00:20 Influenza Type A RNA Not Detected (Not Detectd) Influenza Type B (PCR) Not Detected (Not Detectd) Group A Strep Rapid Positive A (Negative) - Radiology Data Radiology results: report reviewed, image reviewed One view x-ray of the chest is obtained. Report is reviewed in its entirety. Impression by Dr. Goodman shows normal chest. No adverse change compared to old exam. There is clearing of the subsegmental atelectasis left lung base compared to old exam. Disposition Clinical Impression: Strep pharyngitis Disposition: HOME SELF-CARE Condition: Good Instructions (If sedation given, give patient instructions): Strep Throat (ED) Additional Instructions: Complete antibiotic prescription in full. Take Tylenol and Motrin for pain and fever control. Follow-up with your primary care physician for recheck in 1-2 days. Return to the emergency department immediately for any new, worsening, or concerning symptoms. Prescriptions: Amoxicillin 500 mg PO Q12HR #20 cap Is patient prescribed a controlled substance at d/c from ED?: No Referrals: Bruce Arce Jr, [Primary Care Provider] - 1-2 days Time of Disposition: 00:55
[2019-11-21 01:58] VITALS: BP 107/63; PULSE 78; RESP 20; TEMP 98.7
== END 2019-11-21 01:20 | disposition home or self-care (01) ==
LOC: EC 23:31
DX: J02.0 Streptococcal pharyngitis (principal); E07.9 Disorder of thyroid, unspecified; Z79.890 Hormone replacement therapy; F17.200 Nicotine dependence, unspecified, uncomplicated; Z85.41 Personal history of malignant neoplasm of cervix uteri; Z88.5 Allergy status to narcotic agent; Z80.9 Family history of malignant neoplasm, unspecified; Z20.828 Contact with and (suspected) exposure to other viral communicable diseases
CPT/HCPCS: 87430; 87502; 71045; 99283; U0003; J1100

== ENCOUNTER → 2020-01-16 | Outpatient (CLI) | payer BC ==
--- NOTE | 2020-01-16 11:38 | US ---
EXAMINATION TYPE: US kidneys/renal and bladder DATE OF EXAM: 01/16/2020 COMPARISON: NONE CLINICAL HISTORY: 55-year-old female R10.9 FLANK PAIN,N28.89 DISORDER OF KIDNEY URETER. TECHNIQUE: Multiple sonographic images of the kidneys and bladder are obtained. FINDINGS: EXAM MEASUREMENTS: Right Kidney: 11.1 x 4.5 x 5.0 cm Left Kidney: 10.3 x 5.9 x 5.6 cm Steward/Stewardess Night notes: Patient of large body habitus. Right Kidney: Mild pelvicaliectasis. Echogenic foci measuring 3 mm and 4 mm. Left Kidney: multiple cysts, largest measuring 2.4 x 2.4 x 1.5cm, inferior pole obscured by overlyin g bowel gas. No hydronephrosis. Bladder: wnl Left jet seen, right not visualized Two liver cysts measuring up to 2.3 cm. IMPRESSION: 1. Mild right-sided pelvicaliectasis. Given patient's flank pain and absent right ureteral jet, corre late to exclude mild/early obstructive uropathy. 2. A couple punctate 3 and 4 mm nonobstructive right renal calculi.
== END | disposition home or self-care (01) ==
LOC: RADUSWWP 09:21
PROVIDERS: ATTEND Family Medicine
DX: N28.89 Other specified disorders of kidney and ureter (principal); N20.0 Calculus of kidney; Z88.5 Allergy status to narcotic agent; Z91.030 Bee allergy status
CPT/HCPCS: 76770

== ENCOUNTER → 2020-02-03 | Outpatient (CLI) | payer BC ==
--- NOTE | 2020-02-04 07:46 | MM ---
Reason for exam: additional evaluation requested from prior study. Last mammogram was performed 1 year and 9 months ago. History: Patient has history of other cancer at age 23. Family history of breast cancer in aunt. Benign US biopsy breast VAD RT of the right breast, May 12, 2015. US discontinued breast loc RT of the right breast, May 03, 2015. Benign stereotactic core biopsy of the right breast, June 29, 2004. Benign ultrasound-guided cyst aspiration of the right breast, May 25, 2003. Benign ultrasound-guided cyst aspiration of the right breast, May 25, 2003. 2 cyst aspirations of the right breast. Core biopsy of the right breast. Physical Findings: Nurse did not find any significant physical abnormalities on exam. MG Diagnostic Mammo w CAD [facility] Bilateral CC and MLO view(s) were taken. Prior study comparison: April 23, 2018, bilateral MG screening mammo w CAD. November 15, 2015, right breast MG diagnostic mammo RT w CAD. The breast tissue is heterogeneously dense. This may lower the sensitivity of mammography. Benign appearing bilateral calcifications. Previous mammotome biopsy in the right breast. These results were verbally communicated with the patient and result sheet given to the patient on 02/03/20. ASSESSMENT: Incomplete: need additional imaging evaluation, BI-RAD 0 RECOMMENDATION: Ultrasound of the right breast. (palpable abnormality)
--- NOTE | 2020-02-04 07:48 | USB ---
Reason for exam: additional evaluation requested from abnormal screening. History: Patient has history of other cancer at age 23. Family history of breast cancer in aunt. Benign US biopsy breast VAD RT of the right breast, May 12, 2015. US discontinued breast loc RT of the right breast, May 03, 2015. Benign stereotactic core biopsy of the right breast, June 29, 2004. Benign ultrasound-guided cyst aspiration of the right breast, May 25, 2003. Benign ultrasound-guided cyst aspiration of the right breast, May 25, 2003. 2 cyst aspirations of the right breast. Core biopsy of the right breast. US Breast Limited RT Right limited breast ultrasound including focal area of concern, retroareolar and axilla demonstrates a 0.5 x 0.2 x 0.4cm cystic cluster at 9 o'clock and a 0.6 x 0.3 x 0.4cm lesion at 11 o'clock. These results were verbally communicated with the patient and result sheet given to the patient on 02/03/20. ASSESSMENT: Probably benign, BI-RAD 3 RECOMMENDATION: Follow-up diagnostic mammogram of the right breast in 6 months. Manage patient on a clinical basis.
== END | disposition home or self-care (01) ==
LOC: RADMAMWWP 13:52
PROVIDERS: ATTEND Family Medicine
DX: N63.11 Unspecified lump in the right breast, upper outer quadrant (principal); N64.4 Mastodynia; R92.8 Other abnormal and inconclusive findings on diagnostic imaging of breast
CPT/HCPCS: 77066

== ENCOUNTER → 2023-10-12 | Outpatient (CLI) | payer BC | END | disposition home or self-care (01) | LOC: RADECHMAIN 13:15 | PROVIDERS: ATTEND Family Medicine | DX: R07.9 Chest pain, unspecified (principal); R60.0 Localized edema | CPT/HCPCS: 93306 ==

== ENCOUNTER → 2023-10-26 | Outpatient (CLI) | payer BC ==
--- NOTE | 2023-10-30 08:27 | CA ---
Exercise Nuclear Stress Test Report Name: Catrina Casey Exam Date: 10/26/2023 10:12 Exam Location: [place] Stress Ht (in): 62 Wt (lb): 237 BSA: 2.05 Ordering Phys: Referring Phys: MICAELA WALTON Technologist: Jonnie Cisneros Age: 58 Gender: F : 1965 Procedure CPT: Indications: ICD-10 Codes: Patient History: Chest pain, shortness of breath and family history of heart disease. Medications: Meds past 24 hrs: Pretest Chest Pain: STRESS TEST Aj Protocol Exercise Duration (min:sec): 04:[address] Depressions (mm): 0 Angina Score: 0 Kim Score: 4.25 Resting HR (bpm): 63 Peak HR (bpm): 141 Resting BP (mmHg): 117 / 69 Peak BP (mmHg): 148 / 92 MPHR: 160 Target HR: 136 % MPHR: 88 METS: 6.8 Total Dose: Peak Dose: Atropine: Double Product: 65334 BP Response: Stress Termination: Reached target heart rate., Dyspnea Stress Symptoms: Dyspnea Stress Summary: The patient's target heart rate was achieved ECG ANALYSIS Resting ECG: Sinus rhythm. Normal conduction. No arrhythmias. Normal repolarization. Stress ECG: No ECG evidence of ischemia with exercise. CONCLUSIONS Exercise capacity fair to good at 6-10 METS. No chest discomfort with stress test. Normal ST segment response to stress. Nuclear test results to follow. Dr. Dilip Nagel MD (Electronically Signed) Final Date: 26 October 2023 12:11
--- NOTE | 2023-10-30 11:23 | NM ---
EXAMINATION TYPE: NM stress cardiolite complete DATE OF EXAM: 10/26/2023 COMPARISON: NONE CLINICAL INDICATION: Chest pain and shortness of breath TECHNIQUE: 9.94mCi Tc99m Sestamibi at 0855 rest 25.7mCi Tc99m Sestamibi at 1030 stress FINDINGS: Targeted heart rate was achieved during performance of the study. Review of stress and rest SPECT roland ges demonstrates no distinct perfusion abnormality. Small fixed defect cardiac apex. Gated analysis shows normal wall motion with an estimated left ventricular ejection fraction of 75 %. IMPRESSION: No scintigraphic evidence for reversible ischemia
== END | disposition home or self-care (01) ==
LOC: RADNMMAIN 08:16
PROVIDERS: ATTEND Family Medicine
DX: R07.9 Chest pain, unspecified (principal); R60.0 Localized edema; Z82.49 Family history of ischemic heart disease and other diseases of the circulatory system
CPT/HCPCS: 93017; 78452; A9500

== ENCOUNTER → 2024-07-10 | Outpatient (CLI) | payer BC ==
--- NOTE | 2024-07-10 11:01 | US ---
EXAMINATION TYPE: US venous doppler duplex LE RT DATE OF EXAM: 07/10/2024 10:47 AM COMPARISON: NONE CLINICAL INDICATION: Female, 59 years old with history of M79.89 LEG SWELLING, M79.604 PAIN RT LEG; R ight leg and foot pain. Not on blood thinners, no redness or swelling, Pain TECHNIQUE: The lower extremity deep venous system is examined utilizing real time linear array sonog karlos with graded compression, color doppler sonography, and spectral doppler. SIDE PERFORMED: Right FINDINGS: VESSELS IMAGED: Common Femoral Vein Deep Femoral Vein Greater Saphenous Vein * Femoral Vein Popliteal Vein Small Saphenous Vein * Proximal Calf Veins (* superficial vessels) Right Leg: Negative for DVT, Color Doppler imaging shows patency of the vessels. Spectral waveforms are within normal limits. IMPRESSION: No evidence of deep vein thrombosis of the right lower extremity. [facility], , 07/10/2024 10:58 AM
== END | disposition home or self-care (01) ==
LOC: RADUSWWP 09:57
PROVIDERS: ATTEND Family Medicine
DX: M79.89 Other specified soft tissue disorders (principal); M79.604 Pain in right leg

== ENCOUNTER → 2024-07-15 | Outpatient (CLI) | payer BC ==
--- NOTE | 2024-07-15 08:38 | US ---
EXAMINATION TYPE: US pelvic complete DATE OF EXAM: 07/15/2024 COMPARISON: NONE CLINICAL INDICATION: Female, 59 years old with history of R10.30 ABD PAIN; right groin pain/leg pain TECHNIQUE: Transvaginal (TV) and Transabdominal (TA) . Transabdominal grayscale sonographic images of the pelvis were acquired. Transvaginal sonographic im ages were medically necessary to better assess the following anatomy: ovaries Doppler imaging: Not performed. FINDINGS: Date of LMP: 5-6 years ago EXAM MEASUREMENTS: Uterus: 7.9 x 3.7 x 4.2 cm Endometrial Stripe: 0.8 cm Right Ovary: Not visualized due to bowel gas Left Ovary: Not visualized due to bowel gas 1. Uterus: Anteverted. Myometrium is heterogeneous. Round hypoechoic lesion (fibroid) right fundus = 1.5 x 1.1 x 1.4cm 2. Endometrium: Borderline. 3. Right Ovary: Obscured by overlying bowel gas 4. Left Ovary: Obscured by overlying bowel gas 5. Bilateral Adnexa: wnl 6. Posterior cul-de-sac: appears wnl IMPRESSION: 1. Incidental 1.5 cm fibroid at the right uterine fundus. 2. Endometrial stripe thickness of 8 mm is borderline for a postmenopausal female. Correlate to ensur e absence of any abnormal bleeding. In the absence of postmenopausal bleeding, consider follow-up in 6 months to reassess. 3. Unable to visualize either ovary. [facility], , 07/15/2024 8:36 AM
--- NOTE | 2024-07-15 08:42 | US ---
EXAMINATION TYPE: US abdomen complete DATE OF EXAM: 07/15/2024 COMPARISON: 01/16/2020 CLINICAL INDICATION: Female, 59 years old with history of R10.30 ABD PAIN; Abdominal pain TECHNIQUE: Grayscale and color Doppler imaging of the abdomen was performed. FINDINGS: EXAM MEASUREMENTS: Liver Length: 19.6 cm Gallbladder Wall: 0.2 cm CBD: 0.5 cm, color Doppler imaging was utilized to isolate the common bile duct for measurement. Spleen: 10.4 cm Right Kidney: 10.7 x 4.6 x 4.5 cm Left Kidney: 9.7 x 5.8 x 5.0 cm REEL FED PRINTER NOTES: *Limitations due to patient's body habitus and overlying bowel gas Pancreas: Tail obscured by overlying bowel gas Liver: A few scattered benign hepatic cysts, largest = 5.2 x 5.6 x 5.4cm in the right lobe Gallbladder: no evidence of stones or hydropic change Evidence for sonographic [place]'s sign: no CBD: wnl Spleen: wnl Right Kidney: no evidence of hydronephrosis Left Kidney: Hypoechoic lesion upper pole = 3.5 x 3.4 x 3.1cm. This shows posterior through transmis yarelis. No hydronephrosis. Upper IVC: wnl Abd Aorta: wnl IMPRESSION: 1. Mild hepatomegaly at 19.6 cm with a few scattered benign hepatic cysts measuring up to 5.6 cm. 2. No gallstones or biliary ductal dilatation. 3. An indeterminate 3.5 cm cortical lesion at the upper pole of the left kidney, not seen in 2019. Th is may represent a cyst with internal echoes representing artifact or debris. Three-month follow-up u ltrasound to reassess and attempt more accurate characterization. [facility], Workstation: [email or web address], 07/15/2024 8:40 AM
== END | disposition home or self-care (01) ==
LOC: RADUSWWP 06:51
PROVIDERS: ATTEND Family Medicine
DX: K76.89 Other specified diseases of liver (principal); R16.0 Hepatomegaly, not elsewhere classified; M79.89 Other specified soft tissue disorders; R60.0 Localized edema
CPT/HCPCS: 76700; 76830; 76856

== ENCOUNTER 2024-09-07 11:18 | Emergency (ER) | payer BC ==
[2024-09-07 11:30] VITALS: RESP 18; TEMP 97.8
--- NOTE | 2024-09-07 12:06 | ED ---
General Adult HPI - General Chief complaint: Recheck/Abnormal Lab/Rx Stated complaint: Hypertension Time Seen by Provider: 09/07/24 11:31 Source: patient, RN notes reviewed, old records reviewed Mode of arrival: ambulatory Limitations: no limitations - History of Present Illness Initial comments: 59-year-old female who presents for evaluation of elevated blood pressure. Patient's blood pressure was noted to be high at work. She states that this was checked secondary to an episode of diaphoresis. [place] patient had no associated chest pain or difficulty breathing. No abdominal pain. She began sweating out of the blue and blood pressure was checked and it was noted to be high. She does not know the exact number. She was sent to urgent care and urgent care sent the patient to the emergency department for evaluation. She states she feels completely better at this time. - Related Data Home Medications Medication Instructions Recorded Confirmed Levothyroxine Sodium [Synthroid] 50 mcg PO DAILY 05/01/15 08/07/18 Previous Rx's Medication Instructions Recorded Acetaminophen Tab [Tylenol] 650 mg PO Q6HR PRN tab 08/08/18 Albuterol Sulfate [Proair Hfa] 2 puff INHALATION Q6HR PRN #1 08/08/18 inhaler Azithromycin [Zithromax] 500 mg PO Q24H #5 tab 08/08/18 Fluticasone/Umeclidin/Vilanter 1 inhalation INHALATION DAILY #1 08/08/18 [Trelegy Ellipta 100-62.5-25] device Nicotine 21Mg/24Hr Patch [Habitrol] 1 patch TRANSDERM DAILY #30 patch 08/08/18 Omeprazole [PriLOSEC] 20 mg PO AC-BID #28 cap 08/08/18 cefuroxime axetiL [Ceftin] 500 mg PO BID 3 Days #6 tab 08/08/18 predniSONE 10 mg PO DIRECTED #30 tab 08/08/18 Amoxicillin 500 mg PO Q12HR #20 cap 11/21/19 Allergies Allergy/AdvReac Type Severity Reaction Status Date / Time codeine AdvReac SHORTNESS Verified 09/07/24 11:29 OF BREATHE Review of Systems ROS Statement: Those systems with pertinent positive or pertinent negative responses have been documented in the HPI. ROS Other: All systems not noted in ROS Statement are negative. Past Medical History Past Medical History: Cancer, Pneumonia, Thyroid Disorder Additional Past Medical History / Comment(s): CERVICAL CANCER AT 23YRS OLD. PNEUMONIA. History of Any Multi-Drug Resistant Organisms: None Reported Past Surgical History: Orthopedic Surgery Additional Past Surgical History / Comment(s): CERVICAL SPINAL SURGERY Past Anesthesia/Blood Transfusion Reactions: No Reported Reaction Past Psychological History: No Psychological Hx Reported Smoking Status: Former smoker Past Alcohol Use History: Rare Past Drug Use History: None Reported - Past Family History Mother Family Medical History: Diabetes Mellitus Father Family Medical History: Diabetes Mellitus, Hypertension Brother(s) Family Medical History: Diabetes Mellitus Sister(s) Family Medical History: Cancer, Diabetes Mellitus General Exam Limitations: no limitations General appearance: alert, in no apparent distress Head exam: Present: atraumatic, normocephalic Eye exam: Present: normal appearance, PERRL ENT exam: Present: normal exam Neck exam: Present: normal inspection. Absent: tenderness, meningismus Respiratory exam: Present: normal lung sounds bilaterally. Absent: respiratory distress, wheezes Cardiovascular Exam: Present: regular rate, normal rhythm GI/Abdominal exam: Present: soft. Absent: distended, tenderness, guarding Extremities exam: Present: normal inspection, normal capillary refill Neurological exam: Present: alert, oriented X3, CN II-XII intact, normal gait. Absent: motor sensory deficit Psychiatric exam: Present: normal affect, normal mood Skin exam: Present: warm, dry, intact Course Vital Signs 09/07/24 11:23 Temperature 97.8 F Pulse Rate 102 H Respiratory 18 Rate Blood Pressure 127/63 O2 Sat by Pulse 97 Oximetry Medical Decision Making - Medical Decision Making Was pt. sent in by a medical professional or institution (YVONNE Mcgovern, HEAD OF [employer]IS[employer]CH[employer]ISING, urgent care, hospital, or correction...) When possible be specific @ -[No] Did you speak to anyone other than the patient for history (EMS, parent, family, police, friend...)? What history was obtained from this source @ -[No] Did you review nursing and triage notes (agree or disagree)? Why? @ -[I reviewed and agree with nursing and triage notes] Were old charts reviewed (outside hosp., previous admission, EMS record, old EKG, old radiological studies, urgent care reports/EKG's, correction records)? Report findings @ -[No old charts were reviewed] Differential Chest Pain: Stable Angina, Unstable Angina, STEMI, NSTEMI Aortic Dissection, Pneumothorax, Musculoskeletal, Esophageal Spasm GERD, Cholecystitis, Pancreatitis, Zoster, this is not meant to be an all-inclusive list. EKG interpreted by me (3pts min.). @Sinus rhythm rate of 86, normal [place] interval, QRS duration 82, QTc [address] segment elevation. X-rays interpreted by me (1pt min.). @ -[None done] CT interpreted by me (1pt min.). @ -[None done] U/S interpreted by me (1pt. min.). @ -[None done] What testing was considered but not performed or refused? (CT, X-rays, U/S, labs)? Why? @ -[None] What meds were considered but not given or refused? Why? @ -[None] Did you discuss the management of the patient with other professionals (professionals i.e. , PA, HEAD OF VISUAL MERCHANDISING, lab, RT, psych nurse, secondary social studies teacher, court advocate, teacher, operations officer, employment case manager)? Give summary @ -[No] Was smoking cessation discussed for >3mins.? @ -[No] Was critical care preformed (if so, how long)? @ -[No] Were there social determinants of health that impacted care today? How? (Homelessness, low income, unemployed, alcoholism, drug addiction, transportat ion, low edu. Level, literacy, decrease access to med. care, alf, rehab)? @ -[No] Was there de-escalation of care discussed even if they declined (Discuss DNR or withdrawal of care, Hospice)? DNR status @ -[No] What co-morbidities impacted this encounter? (DM, HTN, Smoking, COPD, CAD, Cancer, CVA, ARF, Chemo, Hep., AIDS, mental health diagnosis, sleep apnea, morbid obesity)? @ -[None] Was patient admitted / discharged? Hospital course, mention meds given and route, prescriptions, significant lab abnormalities, going to OR and other pertinent info. @59-year-old female who had an episode of diaphoresis, very minor nosebleed. Nosebleed resolved. There was note of the a blood pressure being elevated. Blood pressure has been normal in the emergency department. She had no active chest pain but there was concern for possible cardiac event. I did obtain EKG, laboratory testing including troponin. This was unremarkable. Patient remained asymptomatic. Stable for discharge with follow-up with her primary care provider. Undiagnosed new problem with uncertain prognosis? @ -[No] Drug Therapy requiring intensive monitoring for toxicity (Heparin, Nitro, Insulin, Cardizem)? @ -[No] Were any procedures done? @ -[No] Diagnosis/symptom? @ -Diaphoresis, nosebleed, hypertension all resolved Acute, or Chronic, or Acute on Chronic? @ -Acute Uncomplicated (without systemic symptoms) or Complicated (systemic symptoms)? @ -[default] Side effects of treatment? @ -[No] Exacerbation, Progression, or Severe Exacerbation? @ -[No] Poses a threat to life or bodily function? How? (Chest pain, [place], [place], pneumonia, PE, COPD, DKA, ARF, appy, cholecystitis, CVA, Diverticulitis, Homicidal, Perla icidal, threat to staff... and all critical care pts) @ -[Low risk at this time - Lab Data Result diagrams: 09/07/24 12:10 09/07/24 12:04 Lab Results 09/07/24 09/07/24 09/07/24 Range/Units 12:04 12:10 12:10 WBC 8.79 (4.50-10.00) 10*3/uL RBC 4.35 (4.10-5.20) 10*6/uL Hgb 12.9 (12.0-15.0) g/dL Hct 39.1 (37.2-46.3) % MCV 89.9 (80.0-97.0) fL MCH 29.7 (27.0-32.0) pg MCHC 33.0 (32.0-37.0) g/dL Plt Count 364 (140-440) 10*3/uL MPV 9.4 L (9.5-12.2) fL Immature Gran % (Auto) 0.2 % Neutrophils % 67.0 % Lymphocytes % 21.6 % Monocytes % 7.1 % Eosinophils % 3.6 % Basophils % 0.5 % Immature Gran # 0.02 (0.00-0.04) 10*3/uL Neutrophils # 5.89 (1.80-7.70) 10*3/uL Lymphocytes # 1.90 (0.90-5.00) 10*3/uL Monocytes # 0.62 (0.20-1.00) 10*3/uL Eosinophils # 0.32 (0.04-0.35) 10*3/uL Basophils # 0.04 (0.00-0.10) 10*3/uL Sodium 141 (137-145) mmol/L Potassium 3.6 (3.5-5.1) mmol/L Chloride 102 (98-107) mmol/L Carbon Dioxide 26 (22-30) mmol/L Anion Gap 13 mmol/L BUN 18 H (7-17) mg/dL Creatinine 0.69 (0.52-1.04) mg/dL Est GFR (CKD-EPI)AfAm >90 (>60 ml/min/1.73 sqM) Est GFR (CKD-EPI)NonAf >90 (>60 ml/min/1.73 sqM) Glucose 98 (74-99) mg/dL Calcium 9.5 (8.4-10.2) mg/dL Magnesium 2.1 (1.6-2.3) mg/dL Total Bilirubin 0.5 (0.2-1.3) mg/dL AST 25 (14-36) U/L ALT 15 (4-34) U/L Alkaline Phosphatase 111 (38-126) U/L Troponin I <0.012 (0.000-0.034) ng/mL Total Protein 7.6 (6.3-8.2) g/dL Albumin 4.3 (3.5-5.0) g/dL Disposition Clinical Impression: Hypertension Disposition: HOME SELF-CARE Condition: Fair Instructions (If sedation given, give patient instructions): Hypertension (ED) Additional Instructions: Please monitor blood pressure closely and follow-up with your primary care provider. Is patient prescribed a controlled substance at d/c from ED?: No Referrals: Bruce Arce Jr, [Primary Care Provider] - 1-2 days Time of Disposition: 12:45
[2024-09-07 12:20] LABS: Basophils # (A) 0.04 10*3/uL (0.00-0.10); Basophils % (A) 0.5 %; Eosinophils # (A) 0.32 10*3/uL (0.04-0.35); Eosinophils % (A) 3.6 %; HCT 39.1 % (37.2-46.3); HGB 12.9 g/dL (12.0-15.0); Lymphocytes # (A) 1.90 10*3/uL (0.90-5.00); Lymphocytes % (A) 21.6 %; MCH 29.7 pg (27.0-32.0); MCHC 33.0 g/dL (32.0-37.0); MCV 89.9 fL (80.0-97.0); Monocytes # (A) 0.62 10*3/uL (0.20-1.00); Monocytes % (A) 7.1 %; Neutrophils # (A) 5.89 10*3/uL (1.80-7.70); Neutrophils % (A) 67.0 %; Platelet Count 364 10*3/uL (140-440); RBC 4.35 10*6/uL (4.10-5.20); RDW 13.6 % (11.5-14.5); WBC 8.79 10*3/uL (4.50-10.00)
[2024-09-07 12:31] LABS: ALT 15 U/L (4-34); AST 25 U/L (14-36); African American GFR (CKD) >90 (>60 ml/min/1.73 sqM); Albumin 4.3 g/dL (3.5-5.0); Alkaline Phosphatase 111 U/L (38-126); Anion Gap 13 mmol/L; Blood Urea Nitrogen 18 mg/dL (7-17); Calcium 9.5 mg/dL (8.4-10.2); Carbon Dioxide 26 mmol/L (22-30); Chloride 102 mmol/L (98-107); Glucose 98 mg/dL (74-99); Magnesium 2.1 mg/dL (1.6-2.3); Non-African American GFR(CKD) >90 (>60 ml/min/1.73 sqM); Potassium 3.6 mmol/L (3.5-5.1); Sodium 141 mmol/L (137-145); Total Protein 7.6 g/dL (6.3-8.2)
[2024-09-07 13:20] VITALS: BP 131/101; PULSE 108
== END 2024-09-07 13:16 | disposition home or self-care (01) ==
LOC: EC 11:18
DX: I10 Essential (primary) hypertension (principal); Z87.891 Personal history of nicotine dependence; Z88.5 Allergy status to narcotic agent
CPT/HCPCS: 36415; 80053; 83735; 84484; 85025; 93005; 99283